=== PATIENT | female | born 1995 | race Two or more races ===

== ENCOUNTER 2021-03-06 14:17 | Emergency (ER) | payer MEDICAID ==
[~2021-03-06] VITALS: Ht 152.4 cm; Wt 74.4 kg
[2021-03-06 15:12] LABS: Urine Bacteria FEW /hpf (None Seen); Urine Blood Negative /uL (Negative); Urine Mucus FEW (None Seen); Urine Specific Gravity 1.021 (1.001-1.035); Urine Sperm PRESENT /hpf (None Seen); Urine WBC 1 /hpf (0 - 5)
[2021-03-06 16:06] VITALS: BP 136/72
[2021-03-06] MEDS ORDERED: ACETAMINOPHEN 500 MG TAB PO ONE (16:30)
== END 2021-03-06 16:50 | disposition home or self-care (01) ==
LOC: ER 14:17
DX: O44.22 Partial placenta previa NOS or without hemorrhage, second trimester (principal); Z3A.18 18 weeks gestation of pregnancy
CPT/HCPCS: 76805; 81001